=== PATIENT | male | born 1980 | race Caucasian/White ===

== ENCOUNTER 2017-08-01 16:17 | Emergency (ER) | payer BC ==
[~2017-08-01] VITALS: Ht 185.4 cm; Wt 117.0 kg
--- NOTE | 2017-08-01 16:32 | NUR ---
MSE DONE BY DR BARRAGAN IN ROOM 03A. PATIENT A & O X4.
--- NOTE | 2017-08-01 16:41 | NUR ---
Patient discharged to home in stable conditon. Written and verbal after care instructions given. Patient verbalizes understanding of instructions.
[2017-08-01 16:44] VITALS: BP 145/75
[2017-08-01] MEDS ORDERED: SUBOXONE (16:45)
[2017-08-01] MEDS ORDERED: ARIP2TAB3 PO (16:45)
[2017-08-01] MEDS ORDERED: CLON-418 PO (16:45)
[2017-08-01] MEDS ORDERED: GABA-534 PO (16:45)
[2017-08-01] MEDS ORDERED: LAMO25TA5 PO (16:45)
[2017-08-01] MEDS ORDERED: TRAZ-144 PO (16:45)
[2017-08-01] MEDS ORDERED: METH-406 PO (16:45)
== END 2017-08-01 16:45 | disposition home or self-care (01) ==
LOC: ER 16:17
DX: F19.10 Other psychoactive substance abuse, uncomplicated (principal)
CPT/HCPCS: 99281; A4663